=== PATIENT | male | born 1945 | race Caucasian/White ===

== ENCOUNTER 2018-06-10 07:20 | Observation (INO) ==
[2018-06-10] MEDS ORDERED: Morphine Inj 4 MG/ML Vial IV.PUSH ONE (07:26)
--- NOTE | 2018-06-10 07:32 | ED ---
HPI General Chief Complaint: Arrhythmia / Palpitations Stated Complaint: Cardiac Time Seen by Provider: 06/10/18 07:26 History of Present Illness HPI narrative: Patient is a 73-year-old male with a history of hypertension and hypercholesterolemia and history of CO in 1994 status post cath and defibrillator insertion. He presents to the ER complaining of chest pain and shortness of breath. He states the chest pain started yesterday and increased in severity today, sternal area radiating to left jaw, 2 out of 10, intermittent , 5 minutes in duration, worse with exertion, alleviated with rest. He was given 325 mg of aspirin and 2 doses of nitroglycerin by EMS prior to ER arrival which decrease the chest pain to 2 out of 10. He denies fever, chills, nausea, vomiting, lower extremity edema, reports shortness of breath with the chest pain and cough and recently traveled to [place] 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 Patient stopped smoking 6 years ago. Related Data Home Medications Medication Instructions Recorded Confirmed losartan 50 mg PO DAILY 06/10/18 06/10/18 metoprolol succinate 25 mg PO DAILY 06/10/18 06/10/18 simvastatin 40 mg PO QPM 06/10/18 06/10/18 temazepam 30 mg PO DAILY 06/10/18 06/10/18 Allergies Allergy/AdvReac Type Severity Reaction Status Date / Time No Known Allergies Allergy Verified 06/10/18 07:27 Review of Systems ROS: all other systems reviewed are [facility] Social History Social History Second Hand Smoke Exposure: No Smoking Status: Former smoker How Often Do You Have a Drink Containing Alcohol: Monthly or less Recent Travel in [facility] within the Last 8 Weeks: No Recent Out of Country Travel within the Last 8 Weeks: No Exam Narrative Exam Narrative: GENERAL: No acute distress. SKIN: Focused skin assessment warm/dry. HEAD: Atraumatic. Normocephalic. EYES: Pupils equal and round. No scleral icterus. No injection or drainage. ENT: No nasal bleeding or discharge. Mucous membranes pink and moist. NECK: Trachea midline. No JVD. CARDIOVASCULAR: Regular rate and rhythm. No murmur appreciated. + defibrillator L chest wall RESPIRATORY: No accessory muscle use. Wheezing bilaterally. GASTROINTESTINAL: Abdomen soft, non-tender, nondistended. Hepatic and splenic margins not palpable. MUSCULOSKELETAL: No obvious deformities. No clubbing. No cyanosis. No edema. NEUROLOGICAL: Awake and alert. No obvious cranial nerve deficits. Motor grossly within normal limits. Normal speech. PSYCHIATRIC: Appropriate mood and affect; insight and judgment normal. Course Initial Documented Vital Signs Temperature 98 F 06/10/18 07:30 Pulse Rate 91 H 06/10/18 07:30 Respiratory Rate 18 06/10/18 07:30 Blood Pressure 135/86 06/10/18 07:30 Last Documented Vital Signs Temperature 98 F 06/10/18 07:34 Pulse Rate 85 06/10/18 09:48 Respiratory Rate 15 06/10/18 09:48 Blood Pressure 110/64 06/10/18 09:48 Pulse Oximetry 96 06/10/18 09:48 Medical Decision Making MDM Narrative Medical decision making narrative: Patient with known cardiac disease presents to the emergency department complaining of chest pain or shortness of breath. Patient placed on personnel monitor, continuous pulse ox, and IV access obtained. As he was given aspirin by EMS and 2 doses of nitroglycerin prior to ER arrival which improved his pain, he was written for another dose of sublingual nitroglycerin 0.4 mg and 2 mg IV morphine in ER. Portable chest x-ray, EKG, and labs ordered. Patient written for duoneb x 1 and 125mg IV methylprednisolone for wheezing. 0758: Patient reports feeling much better after the breathing treatment, chest pain/tightness decreased. Of note, patient given 500cc IV NS by EMS and CXR shows: CONCLUSION: Minimal increased interstitial markings bilaterally consistent with possible mild pulmonary vascular congestion. 0907: BNP 360. Dr Arroyo, patient's leather belt shaper called. Left message with office staff as he is in a procedure at [facility]. 0939: Spoke to Dr Arroyo, advised to admit. Discussed with Dr Pollock, hospitalist. Will give 20mg IV lasix and admit to obs. CTA chest-> CONCLUSION:1. No pulmonary embolus identified.2. COPD changes.3. Bibasilar atelectasis and minimal effusionswithin the lung bases.4. Mild cardiomegaly.5. Mild atherosclerotic plaquing in the coronary arteries. Medical Screen Exam Complete: Yes Emergency Medical Condition: Yes Lab Data Result diagrams: 06/10/18 07:25 06/10/18 07:25 Lab Results 11/06/10/18 06/10/18 Range/Units 07:25 07:25 07:25 WBC 6.1 (4.0-11.0) th/mm3 RBC 4.54 (4.50-5.90) mil/mm3 Hgb 14.4 (13.0-17.0) gm/dL Hct 41.4 (39.0-51.0) % MCV 91.2 (80.0-100.0) fL MCH 31.7 (27.0-34.0) pg MCHC 34.8 (32.0-36.0) % RDW 13.5 (11.6-17.2) % Plt Count 157 (150-450) th/mm3 MPV 8.8 (7.0-11.0) fL Neut % (Auto) 60.4 (16.0-70.0) % Lymph % (Auto) 28.6 (9.0-44.0) % Gaines % (Auto) 8.1 H (0.0-8.0) % Eos % (Auto) 2.2 (0.0-4.0) % Baso % (Auto) 0.7 (0.0-2.0) % Neut # (Auto) 3.7 (1.8-7.7) th/mm3 Lymph # (Auto) 1.7 (1.0-4.8) th/mm3 Gaines # (Auto) 0.5 (0.0-0.9) th/mm3 Eos # (Auto) 0.1 (0.0-0.4) th/mm3 Baso # (Auto) 0.0 (0.0-0.2) th/mm3 WBC Differential . Differential Comment Auto diff final PT (9.8-11.6) sec INR Ratio APTT (23.4-31.7) sec D-Dimer Quant (PE/DVT) 0.87 H (0.00-0.50) mg/L FEU Sodium (136-145) meq/L Potassium (3.5-5.1) meq/L Chloride (98-107) meq/L Carbon Dioxide (21.0-32.0) meq/L Anion Gap (5-15) meq/L BUN (7-18) mg/dL Creatinine (0.60-1.30) mg/dL Estimated GFR (>89) mL/min Random Glucose (74-106) mg/dL Calcium (8.5-10.1) mg/dL Magnesium (1.5-2.5) mg/dL Total Bilirubin (0.2-1.0) mg/dL AST (15-37) U/L ALT (12-78) U/L Alkaline Phosphatase (45-117) U/L Troponin I (0.02-0.05) ng/mL B-Natriuretic Peptide 360 H (0-100) pg/mL Total Protein (6.4-8.2) g/dL Albumin (3.4-5.0) g/dL 06/10/18 06/10/18 Range/Units 07:25 07:25 WBC (4.0-11.0) th/mm3 RBC (4.50-5.90) mil/mm3 Hgb (13.0-17.0) gm/dL Hct (39.0-51.0) % MCV (80.0-100.0) fL MCH (27.0-34.0) pg MCHC (32.0-36.0) % RDW (11.6-17.2) % Plt Count (150-450) th/mm3 MPV (7.0-11.0) fL Neut % (Auto) (16.0-70.0) % Lymph % (Auto) (9.0-44.0) % Gaines % (Auto) (0.0-8.0) % Eos % (Auto) (0.0-4.0) % Baso % (Auto) (0.0-2.0) % Neut # (Auto) (1.8-7.7) th/mm3 Lymph # (Auto) (1.0-4.8) th/mm3 Gaines # (Auto) (0.0-0.9) th/mm3 Eos # (Auto) (0.0-0.4) th/mm3 Baso # (Auto) (0.0-0.2) th/mm3 WBC Differential Differential Comment PT 10.0 (9.8-11.6) sec INR 1.0 Ratio APTT 28.9 (23.4-31.7) sec D-Dimer Quant (PE/DVT) (0.00-0.50) mg/L FEU Sodium 144 (136-145) meq/L Potassium 3.8 (3.5-5.1) meq/L Chloride 112 H (98-107) meq/L Carbon Dioxide 22.4 (21.0-32.0) meq/L Anion Gap 10 (5-15) meq/L BUN 16 (7-18) mg/dL Creatinine 1.06 (0.60-1.30) mg/dL Estimated GFR 69 L (>89) mL/min Random Glucose 127 H (74-106) mg/dL Calcium 8.3 L (8.5-10.1) mg/dL Magnesium 2.0 (1.5-2.5) mg/dL Total Bilirubin 0.5 (0.2-1.0) mg/dL AST 20 (15-37) U/L ALT 25 (12-78) U/L Alkaline Phosphatase 91 (45-117) U/L Troponin I Less than 0.02 L (0.02-0.05) ng/mL B-Natriuretic Peptide (0-100) pg/mL Total Protein 7.3 (6.4-8.2) g/dL Albumin 3.5 (3.4-5.0) g/dL Imaging Data Radiologist's impression: Chest X-Ray 06/10/18 07:27 CONCLUSION: Minimal increased interstitial markings bilaterally consistent with possible mild pulmonary vascular congestion. Clinical correlation is recommended. Chest CTA 06/10/18 08:18 CONCLUSION: 1. No pulmonary embolus identified. 2. COPD changes. 3. Bibasilar atelectasis and minimal effusions within the lung bases. 4. Mild cardiomegaly. 5. Mild atherosclerotic plaquing in the coronary arteries. ECG Data Attestation: I personally reviewed and interpreted this ECG as follows: Discharge Plan Discharge Disposition Patient Disposition: 30 Still Patient Discharge Condition Condition: Stable Discharge Details Diagnosis: Chest pain, CHF (congestive heart failure) Physicians Team ED Provider: Mary Krishnamurthy Primary Care Provider: Chuck Magana Attending Provider: Lesly Pollock Other Providers: [facility],Insurance Discharge Interventions Interventions: Vital Signs Last Done: 06/10/18 09:48 Status ED Status: Admitted Observation Patient
[2018-06-10] MEDS ORDERED: MethylPREDNISolone Sod Succinate Inj 125 MG/2 ML Vial IV.PUSH ONE (07:50)
[2018-06-10 07:53] LABS: Baso % (Auto) 0.7 % (0.0-2.0); Eos # (Auto) 0.1 th/mm3 (0.0-0.4); Eos % (Auto) 2.2 % (0.0-4.0); Hematocrit 41.4 % (39.0-51.0); Hemoglobin 14.4 gm/dL (13.0-17.0); Lymph # (Auto) 1.7 th/mm3 (1.0-4.8); Lymph % (Auto) 28.6 % (9.0-44.0); Mean Corpuscular HGB Conc 34.8 % (32.0-36.0); Mean Corpuscular Hemoglobin 31.7 pg (27.0-34.0); Mean Corpuscular Volume 91.2 fL (80.0-100.0); Mean Platelet Volume 8.8 fL (7.0-11.0); Mono # (Auto) 0.5 th/mm3 (0.0-0.9); Mono % (Auto) 8.1 % (0.0-8.0); Neut # (Auto) 3.7 th/mm3 (1.8-7.7); Neut % (Auto) 60.4 % (16.0-70.0); Platelet Count 157 th/mm3 (150-450); Red Blood Count 4.54 mil/mm3 (4.50-5.90); Red Cell Distribution Width 13.5 % (11.6-17.2); White Blood Count 6.1 th/mm3 (4.0-11.0)
--- NOTE | 2018-06-10 07:53 | XR ---
EXAM DATE: 06/10/2018 7:43 AM EST AGE/SEX: 73 years / Male INDICATIONS: Shortness of breath and chest pain. CLINICAL DATA: This is the patient's initial encounter. Patient reports that signs and symptoms have been present for 1 day and indicates a pain score of 8/10. MEDICAL/SURGICAL HISTORY: . Cardiac. Pacemaker. COMPARISON: No prior exams available for comparison. FINDINGS: The heart is top normal size. Left subclavian pacemaker has its tip in the right ventricle. There is no pneumothorax. Minimal increased interstitial markings are noted consistent with possible mild katja estion. Clinical correlation is recommended. CONCLUSION: Minimal increased interstitial markings bilaterally consistent with possible mild pulmonary vascular congestion. Clinical correlation is recommended. Electronically signed by: Efren Barajas MD 06/10/2018 7:52 AM EST
[2018-06-10 08:07] LABS: Activated Partial Thrombo Time 28.9 sec (23.4-31.7)
[2018-06-10 08:28] LABS: Alanine Aminotransferase 25 U/L (12-78); Albumin 3.5 g/dL (3.4-5.0); Anion Gap 10 meq/L (5-15); Aspartate Aminotransferase 20 U/L (15-37); Blood Urea Nitrogen 16 mg/dL (7-18); Calcium 8.3 mg/dL (8.5-10.1); Carbon Dioxide 22.4 meq/L (21.0-32.0); Chloride 112 meq/L (98-107); Glomerular Filtration Rate 69 mL/min (>89); Glucose,Random 127 mg/dL (74-106); Potassium 3.8 meq/L (3.5-5.1); Sodium 144 meq/L (136-145)
[2018-06-10 08:32] LABS: Alkaline Phosphatase 91 U/L (45-117); Total Protein 7.3 g/dL (6.4-8.2)
--- NOTE | 2018-06-10 10:10 | CT ---
EXAM DATE: 06/10/2018 9:59 AM EST AGE/SEX: 73 years / Male INDICATIONS: Midsternal chest pain and shortness of breath. CLINICAL DATA: This is the patient's initial encounter. Patient reports that signs and symptoms have been present for 1 day and indicates a pain score of 4/10. MEDICAL/SURGICAL HISTORY: Cardiovascular disease. Cardiac cath. Defibrillator. RADIATION DOSE: 14.42 CTDI (mGy) COMPARISON: No prior exams available for comparison. TECHNIQUE: Volumetric scanning was performed using a multi-row detector CT scanner during bolus infu gissell of 72 ml Omnipaque 350 (iohexol) nonionic water-soluble contrast as a single exam dose. The kamryn a was post processed with a variety of visualization algorithms including full volume maximum intensi ty projection and sliding thin slab reformation. Using automated exposure control and adjustment of the mA and/or kV according to patient size, radiation dose was kept as low as reasonably achievable t o obtain optimal diagnostic quality images. DICOM format image data is available electronically for review and comparison. FINDINGS: The examination is of adequate diagnostic quality. No pulmonary embolus is identified. There is no significant hilar or mediastinal adenopathy evident. There is moderate atherosclerotic pl aquing in the coronary arteries. Imaging through the pulmonary parenchyma demonstrates moderate COPD changes. There is tubular bronchi ectasis in the lung bases and bibasilar atelectasis. There are minimal bibasilar effusions. There is a small amount of fluid within the major fissure on the right. No suspicious mass lesions are identif ied within the pulmonary parenchyma. There are degenerative changes within the thoracic spine. CONCLUSION: 1. No pulmonary embolus identified. 2. COPD changes. 3. Bibasilar atelectasis and minimal effusions within the lung bases. 4. Mild cardiomegaly. 5. Mild atherosclerotic plaquing in the coronary arteries. Electronically signed by: John Barnes MD 06/10/2018 10:09 AM EST
[2018-06-10 12:20] LABS: Creatine Kinase 88 U/L (39-308)
--- NOTE | 2018-06-10 12:54 | ECG ---
Date Performed: 06/10/2018 Time Performed: 07:24:29 PTAGE: 73 years EKG: Sinus rhythm WITH OCCASIONAL VENTRICULAR PREMATURE COMPLEXES MARKED LEFT AXIS DEVIATION MODERATE INTRAVENTRICULAR CONDUCTION DELAY NONSPECIFIC T-WAVE ABNORMALITY ABNORMAL ECG INTERPRETATION BASED ON A DEFAULT AGE O F 41 YEARS NO PREVIOUS TRACING DOCTOR: Genaro Granados Interpretating Date/Time 06/10/2018 12:54:39
[2018-06-10] MEDS: Enoxaparin Inj 40 MG/0.4 ML Syringe SQ SCH (13:00)
--- NOTE | 2018-06-10 13:42 | P.HPIM ---
History of Present Illness Service: [facility] Hospitalist Primary Care Physician: Chuck Magana MD Chief Complaint: Chest pain with shortness of breath History of Present Illness: 73-year-old white male with a previous history of hypertension, hyperlipidemia, systolic congestive heart failure with EF of 32%, history of WI in 95 status post catheterization, previous defibrillator presents to the emergency room with acute substernal chest pain which he describes as an elephant sitting on his chest radiating up to his neck which woke him up from sleep this morning which. This was associated with acute shortness of breath and sense of clamminess and therefore his contacted EMS to bring him to emergency room. Of note, patient had appointment with Dr. Chowdhury today at 5:00pm to follow-up with his chronic intermittent chest pressure he has had with physical exertion during the past 4 months. He had a cardiac catheterization done July of this year prior to the defibrillator placement and was told no further intervention needed to be done. He denies a history of lung problems and reported that he has intermittent shortness of breath with extensive physical exertion otherwise this is the first time he is experiencing chest pain and shortness of breath at rest and therefore came in for evaluation. He denies a history of lung problems. He does have a 30 pack tobacco history and quit 6 years ago. He denies any recent chills or fever nor any coughing associated with the symptoms. He denies symptoms orthopnea nor any edema. Patient reports chest pain now resolved after aspirin and Nitro given. Diagnosis (1) Acute on chronic systolic (congestive) heart failure: (2) Chest pain: Review of Systems Constitutional: Reports as per HPI and Denies headache(s) Eyes: Denies blurry vision, Denies change in vision and Denies eye pain Ears, Nose, Mouth, and Throat: Denies abnormal hearing, Denies headache(s), Denies mouth pain, Denies nasal congestion, Denies neck pain and Denies sore throat Cardiovascular: Reports as per HPI, Reports chest pain, Reports chest pain with activity, Reports diaphoresis, Denies pedal edema, Denies edema, Denies palpitations, Denies dyspnea, Reports dyspnea on exertion and Denies orthopnea Respiratory: Denies cough and Reports dyspnea Gastrointestinal: Denies abdominal pain, Denies constipation, Denies loose stools, Denies nausea and Denies vomiting Musculoskeletal: Denies back pain, Denies myalgias, Denies arthralgias, Denies neck pain and Denies numbness Skin/Breast: Denies new lesions and Denies rash Neurologic: Denies abnormal hearing, Denies headache(s), Denies focal weakness, Denies memory loss and Denies numbness Psychiatric: Denies anxiety, Denies depression and Denies memory loss Endocrine: Denies cold intolerance, Denies heat intolerance and Denies palpitations Hematologic/Lymphatic: Denies easy bleeding and Denies easy bruising PMFSH Medical History Medical History Diverticulosis (Chronic) Hyperlipidemia (Chronic) Hypertension (Chronic) Myocardial infarction (Chronic) Systolic congestive heart failure (Chronic) Surgical History Surgical History Cardiac defibrillator in place (Chronic) Family History Family History Father Heart disease Mother Heart disease Social History Social History Second Hand Smoke Exposure: No Smoking Status: Former smoker How Often Do You Have a Drink Containing Alcohol: Monthly or less Recent Travel in [facility] within the Last 8 Weeks: No Recent Out of Country Travel within the Last 8 Weeks: No Immunization History Tetanus Immunization: Unsure Medications and Allergies Allergies Allergy/AdvReac Type Severity Reaction Status Date / Time No Known Allergies Allergy Verified 06/10/18 07:27 Home Medications Medication Instructions Recorded Confirmed Type losartan 50 mg PO DAILY 06/10/18 06/10/18 History metoprolol succinate 25 mg PO DAILY 06/10/18 06/10/18 History simvastatin 40 mg PO QPM 06/10/18 06/10/18 History temazepam 30 mg PO HS 06/10/18 06/10/18 History Active Medications: Active Medications Aspirin (Aspirin Chew) 81 mg PO DAILY DINO Enoxaparin Sodium (Lovenox Inj) 40 mg SQ Q24H DINO Furosemide (Lasix Inj) 20 mg IV.PUSH BID@0900,1800 [facility] Losartan Potassium (Cozaar) 50 mg PO DAILY DINO Metoprolol Succinate (Toprol Xl) 25 mg PO DAILY DINO Potassium Chloride (K-Dur) 20 meq PO BID DINO Pravastatin Sodium (Pravachol) 80 mg PO DAILY@1800 DINO Sodium Chloride (Ns Flush) 2 ml IV.FLUSH UNSCH PRN PRN Reason: FLUSH AFTER USING IV ACCESS Last Admin: 06/10/18 08:00 Dose: 2 ml Sodium Chloride (Ns Flush) 2 ml IV.FLUSH BID DINO Sodium Chloride (Ns Flush) 2 ml IV.FLUSH UNSCH PRN PRN Reason: FLUSH AFTER USING IV ACCESS Physical Exam Vital signs: Last Vital Signs Temp 98 F 06/10/18 07:34 Pulse 85 06/10/18 09:48 Resp 15 06/10/18 09:48 BP 110/64 06/10/18 09:48 Pulse Ox 96 06/10/18 09:48 Intake & Output 06/08/18 06/09/18 06/10/18 06/11/18 06:59 06:59 06:59 06:59 Weight 60.328 kg Narrative: GENERAL: Well-nourished well-developed male in no acute distress SKIN: Warm and dry. HEAD: Atraumatic. Normocephalic. EYES: Pupils equal and round. No scleral icterus. No injection or drainage. ENT: No nasal bleeding or discharge. Mucous membranes pink and moist. NECK: Trachea midline. Positive JVD CARDIOVASCULAR: Regular rate and rhythm. RESPIRATORY: Few right basilar crackles GASTROINTESTINAL: Abdomen soft, non-tender, nondistended. Hepatic and splenic margins not palpable. Normoactive bowel sounds MUSCULOSKELETAL: Extremities without clubbing, cyanosis, or edema. No obvious deformities. NEUROLOGICAL: Awake and alert to person place time. No obvious cranial nerve deficits. Motor grossly within normal limits. Five out of 5 muscle strength in the arms and legs. Normal speech. PSYCHIATRIC: Appropriate mood and affect; insight and judgment normal. Results Labs CBC & Chem 7: 06/10/18 07:25 06/10/18 07:25 Imaging Impressions Chest X-Ray 06/10/18 07:27 CONCLUSION: Minimal increased interstitial markings bilaterally consistent with possible mild pulmonary vascular congestion. Clinical correlation is recommended. Chest CTA 06/10/18 08:18 CONCLUSION: 1. No pulmonary embolus identified. 2. COPD changes. 3. Bibasilar atelectasis and minimal effusions within the lung bases. 4. Mild cardiomegaly. 5. Mild atherosclerotic plaquing in the coronary arteries. ECG Attestation: I personally reviewed and interpreted this ECG as follows: Prior ECG tracings: not available for review Interpretation: Normal sinus rhythm heart rate 93 with PVCs Caprini VTE Risk Assessment Caprini VTE Risk Assessment: Moderate/High Risk (score >= 2) Caprini Risk Assessment Model: Point Value = 1 Point Value = 2 Point Value = 3 Point Value = 5 Age 41-60 Minor surgery BMI > 25 kg/m2 Swollen legs Varicose veins or History of unexplained or recurrent spontaneous Oral contraceptives or hormone replacement Sepsis (< 1 month) Serious lung disease, including pneumonia (< 1 month) Abnormal pulmonary function Acute myocardial infarction Congestive heart failure (< 1 month) History of inflammatory bowel disease Medical patient at bed rest Age 61-74 Arthroscopic surgery Major open surgery (> 45 min) Laparoscopic surgery (> 45 min) Malignancy Confined to bed (> 72 hours) Immobilizing plaster cast Central venous access Age >= 75 History of VTE Family history of VTE Factor V Leiden Prothrombin 12001T Lupus anticoagulant Anticardiolipin antibodies Elevated serum homocysteine Heparin-induced thrombocytopenia Other congenital or acquired thrombophilia Stroke (< 1 month) Elective arthroplasty Hip, pelvis, or leg fracture Acute spinal cord injury (< 1 month) Prophylaxis Regimen: Total Risk Factor Score Risk Level Prophylaxis Regimen 0-1 Low Early ambulation 2 Moderate Order ONE of the following: *Sequential Compression Device (SCD) *Heparin 5000 units SQ BID 3-4 Higher Order ONE of the following medications: *Heparin 5000 units SQ TID *Enoxaparin/Lovenox 40 mg SQ daily (WT < 150 kg, CrCl > 30 mL/min) *Enoxaparin/Lovenox 30 mg SQ daily (WT < 150 kg, CrCl > 10-29 mL/min) *Enoxaparin/Lovenox 30 mg SQ BID (WT < 150 kg, CrCl > 30 mL/min) AND/OR *Sequential Compression Device (SCD) 5 or more Highest Order ONE of the following medications: *Heparin 5000 units SQ TID (Preferred with Epidurals) *Enoxaparin/Lovenox 40 mg SQ daily (WT < 150 kg, CrCl > 30 mL/min) *Enoxaparin/Lovenox 30 mg SQ daily (WT < 150 kg, CrCl > 10-29 mL/min) *Enoxaparin/Lovenox 30 mg SQ BID (WT < 150 kg, CrCl > 30 mL/min) AND *Sequential Compression Device (SCD) Assessment and Plan (1) Acute on chronic systolic (congestive) heart failure: Code(s): I50.23 - Acute on chronic systolic (congestive) heart failure Status: Acute (2) Chest pain: Code(s): R07.9 - Chest pain, unspecified Status: Acute Plan 73-year-old male with a previous history of systolic congestive heart failure status post defibrillator, hypertension, hyperlipidemia presents with chest pain and shortness of breath at rest Acute on chronic systolic congestive heart failure exacerbation -placed on observation, IV Lasix, fluid restriction, monitor I's and O's, obtain 2D echo, states that previous echo done in July of this year showed a EF of 32% with Dr. Chowdhury. BNP 360 Chest pain-serial cardiac enzymes with EKG, initiate aspirin, reports a cardiac catheterization done in July of this year. His cardiology Dr. Chowdhury has been consulted for further evaluation. No pulmonary embolus seen on CTA. Discussed COPD changes on CTA imaging report with patient and and recommended patient have an outpatient workup with office spirometry and follow with primary care physician. He does have a 30-year pack history of tobacco use and has quit 6 years ago. Hypertension, chronic essentialresume home losartan Hyperlipidemiaresume simvastatin DVT prophylaxisLovenox. _ (1) Chest pain Qualifiers: Chest pain type: unspecified Ischemic chest pain type: Qualified Code(s): R07.9 - Chest pain, unspecified
--- NOTE | 2018-06-10 17:28 | ECHRPT ---
Indication: HEART FAILURE CONCLUSIONS Severely dilated left ventricle. Wall thickness is measured at the upper limits of normal. The left ventricular systolic function is severely reduced with an estimated ejection fraction less than 20%. [id number] mitral valve regurgitation. Trace aortic valve regurgitation. There is trace tricuspid valve regurgitation There is a pacemaker/defibrillator wire seen in the right atrium and the right ventricular. BP: / HR: Rhythm: Sinus MEASUREMENTS (Male / Female) Normal Values Technical Quality:Fair 2D ECHO LVOT Diameter 1.9 cm Aortic Root Diameter 2.9 cm DOPPLER AV Peak Velocity 85.5 cm/s AV Peak Gradient 2.9 mmHg AV Mean Gradient 2.0 mmHg AV Velocity Time Integral 15.3 cm LVOT Peak Velocity 57.9 cm/s LVOT Peak Gradient 1.3 mmHg LVOT Velocity Time Integral 10.8 cm AV Area Cont Eq vti 2.0 cm AV Area Cont Eq pk 1.9 cm Mitral E Point Velocity 83.4 cm/s Mitral A Point Velocity 72.1 cm/s Mitral E to A Ratio 1.2 LV E' Lateral Velocity 8.2 cm/s Mitral E to LV E' Lateral Ratio 10.2 LV E' Septal Velocity 3.1 cm/s Mitral E to LV E' Septal Ratio 26.7 TR Peak Velocity 354.0 cm/s TR Peak Gradient 50.0 mmHg Right Atrial Pressure 10.0 mmHg Pulmonary Artery Systolic Pressu 60.1 mmHg Right Ventricular Systolic Press 60.1 mmHg PV Peak Velocity 29.3 cm/s PV Peak Gradient 0.3 mmHg FINDINGS LEFT VENTRICLE Severely dilated left ventricle. Wall thickness is measured at the upper limits of normal. The left ventricular systolic function is severely reduced with an estimated ejection fraction less than 20%. RIGHT VENTRICLE Normal right ventricular size and systolic function. A pacemaker wire is noted. LEFT ATRIUM The left atrial size is normal. RIGHT ATRIUM The right atrial size is normal. ATRIAL SEPTUM No atrial level shunt is demonstrated by color flow Doppler interrogation. AORTA The aortic root and proximal ascending aorta are not well visualized. MITRAL VALVE [id number] mitral valve regurgitation. AORTIC VALVE Trace aortic valve regurgitation. TRICUSPID VALVE There is trace tricuspid valve regurgitation PULMONARY VALVE No pulmonary valve regurgitation or stenosis. VESSELS The inferior vena cava was not well visualized. PERICARDIUM No pericardial effusion. Genaro Granados MD, FACC (Electronically Signed) Final Date:10 June 2018 17:27
[2018-06-10] MEDS ORDERED: Temazepam 15 MG Capsule PO PRN (21:45)
[2018-06-11 07:55] VITALS: BP 118/67; PULSE 87; RESP 16; TEMP 98; O2SAT 95
[2018-06-11 07:55] LABS: Calcium 9.8 mg/dL (8.5-10.1); Carbon Dioxide 21.9 meq/L (21.0-32.0); Potassium 4.4 meq/L (3.5-5.1)
--- NOTE | 2018-06-11 09:37 | MB ---
cc: Lisa Arroyo MD DATE: 06/11/2018 REASON FOR CONSULTATION: Chest pain and CHF exacerbation. HISTORY OF PRESENT ILLNESS: This is a 73-year-old male who was well-known to me, had a past medical history of severe dilated cardiomyopathy with an ejection fraction of 32%, status post AICD placement, hypertension, hyperlipidemia, and remote history of myocardial infarction. The patient presented to [facility] emergency room yesterday with a complaint of chest pressure radiating to the neck and jaw. He also experienced increasing shortness of breath with exertion. The initial workup included BNP which was elevated at 360. Multiple cardiac enzymes came back with a troponin of 0.02. CT scan of the chest was negative for pulmonary embolus. EKG was also obtained and showed no ST changes. The patient is feeling better this morning. He denies PND, orthopnea, lower extremity edema, or recent weight gain. He also denies presyncope and syncope. ALLERGIES: UNKNOWN. SOCIAL HISTORY: Nonsmoker, nondrinker. FAMILY HISTORY: Noncontributory. REVIEW OF SYSTEMS: HEENT: No complaints of lightheadedness or dizziness. CARDIOVASCULAR: History of severe dilated cardiomyopathy status post AICD. PULMONARY: No complaints of asthma or COPD. GASTROINTESTINAL: No GERD or GI bleed. GENITOURINARY: No history of renal failure. The remainder of his review of systems was within normal limits. PHYSICAL EXAMINATION: VITAL SIGNS: Show blood pressure of 120/70 with a heart rate of 70, respiratory rate of 12. The patient is afebrile. NECK: Supple with no jugular venous distention. CHEST: Clear to auscultation and percussion. HEART: S1 normal intensity, S2 single, regular rate and rhythm. No S3 appreciated. ABDOMEN: Benign. EXTREMITIES: No edema, clubbing, or cyanosis. IMPRESSION: 1. Congestive heart failure exacerbation secondary to [id number] severe dilated cardiomyopathy. 2. Chest pain, possibly bronchospasm versus coronary spasm. The patient had a left heart catheterization earlier this year, which showed normal coronary arteries. 3. Status post automatic implantable cardioverter-defibrillator. 4. Severe dilated cardiomyopathy with ejection fraction of 32%. 5. Hypertension. 6. Hyperlipidemia. RECOMMENDATION: I recommend starting the patient on long-acting nitroglycerin like isosorbide mononitrate 30 mg at bedtime for symptomatic relief. There is no suspicion of acute coronary syndrome. At this point, he is cleared from the cardiovascular standpoint to be discharged home. I will follow up in my office next week. MD LILIYA English/fracisco , 08:32 AM , 08:41 AM
--- NOTE | 2018-06-11 09:56 | P.DS ---
Date of admission: 06/10/18 09:40 Primary care physician: Chuck Magana MD Brief History from admission: 73-year-old white male with a previous history of hypertension, hyperlipidemia, systolic congestive heart failure with EF of 32%, history of UT in 95 status post catheterization, previous defibrillator presents to the emergency room with acute substernal chest pain which he describes as an elephant sitting on his chest radiating up to his neck which woke him up from sleep this morning which. This was associated with acute shortness of breath and sense of clamminess and therefore his contacted EMS to bring him to emergency room. Of note, patient had appointment with Dr. Chowdhury today at 5:00pm to follow- up with his chronic intermittent chest pressure he has had with physical exertion during the past 4 months. He had a cardiac catheterization done July of this year prior to the defibrillator placement and was told no further intervention needed to be done. He denies a history of lung problems and reported that he has intermittent shortness of breath with extensive physical exertion otherwise this is the first time he is experiencing chest pain and shortness of breath at rest and therefore came in for evaluation. He denies a history of lung problems. He does have a 30 pack tobacco history and quit 6 years ago. He denies any recent chills or fever nor any coughing associated with the symptoms. He denies symptoms orthopnea nor any edema. Patient reports chest pain now resolved after aspirin and Nitro given. DS: Medications - Discharge Medications Prescriptions: isosorbide mononitrate 30 mg PO DAILY@0700 #30 tab DS: Summary Hospital Course: Mr. Bradford is a 73-year-old male. He is admitted secondary to chest pain/angina. Symptoms may have been related to coronary spasm or known coronary artery disease. She did have a mild CHF exacerbation which has resolved. Baseline EF is approximately 32%. This morning patient feels back to baseline. Cardiology has evaluated this patient and recommended long-acting nitrates. Patient is stable and clear for discharge from cardiology standpoint and medically stable and cleared from medical team as well. Discharge home today. - Time Spent with Patient Total time spent providing and/or coordinating discharge services: Less than 30 minutes - Quality: VTE Deep Vein Thrombosis/Pulmonary Embolism Present on Admission: No Exam Vital signs: Vital Signs 06/10/18 13:36 06/10/18 15:00 06/10/18 17:19 Temperature Pulse Rate 93 H 102 H 98 H Respiratory Rate 15 16 16 Blood Pressure 119/77 156/83 H 147/79 H Pulse Oximetry 97 99 06/10/18 19:18 06/10/18 22:44 06/10/18 23:16 Temperature 97.6 F 98.2 F Pulse Rate 93 H 103 H 98 H Respiratory Rate 16 16 Blood Pressure 127/77 143/82 H Pulse Oximetry 97 97 97 06/11/18 03:23 06/11/18 07:53 Temperature 97.9 F 98.0 F Pulse Rate 96 H 87 Respiratory Rate 12 16 Blood Pressure 111/68 118/67 Pulse Oximetry 93 L 95 Intake & Output 06/10/18 06/11/18 06/11/18 18:59 06:59 18:59 Intake Total 240 / 240 240 / 240 Output Total 2250 / 2250 500 / 500 Balance -2009 / -2009 - / -260 Weight 60.425 kg 58.66 kg Intake: Oral 240 / 240 240 / 240 Output: Urine 2250 / 2250 500 / 500 Other: # Voids 1 Date of Last Bowel Movement 06/08/18 06/10/18 Weight On Admission 60.425 kg Results Procedures completed during hospitalization: none Labs on day of discharge: Labs from last 24 hours 06/11/18 06/10/18 06/10/18 05:51 22:04 13:17 Sodium 138 Potassium 4.4 Chloride 107 Carbon Dioxide 21.9 Anion Gap 9 BUN 23 H Creatinine 1.04 Estimated GFR 70 L Random Glucose 120 H Calcium 9.8 D Total Creatine Kinase Troponin I Less than 0.02 L Less than 0.02 L 06/10/18 11:21 Sodium Potassium Chloride Carbon Dioxide Anion Gap BUN Creatinine Estimated GFR Random Glucose Calcium Total Creatine Kinase 88 Troponin I Less than 0.02 L - Impressions ITS Impressions Chest X-Ray 06/10/18 07:27 CONCLUSION: Minimal increased interstitial markings bilaterally consistent with possible mild pulmonary vascular congestion. Clinical correlation is recommended. Chest CTA 06/10/18 08:18 CONCLUSION: 1. No pulmonary embolus identified. 2. COPD changes. 3. Bibasilar atelectasis and minimal effusions within the lung bases. 4. Mild cardiomegaly. 5. Mild atherosclerotic plaquing in the coronary arteries. Discharge Plan - Discharge Disposition Patient Disposition: 01 Discharge Home - Discharge Condition Condition: Stable - Discharge Order Discharge Orders: Discharge Order (Routine); Ordered 06/11/18 Ordered By: John Noel - Discharge Details Anticipated Discharge Date: 06/11/18 - Physicians Team Primary Care Provider: Chuck Magana Attending Provider: John Noel Other Providers: [facility],Insurance
[2018-06-11] MEDS: Enoxaparin Inj 40 MG/0.4 ML Syringe SQ SCH (10:18)
--- NOTE | 2018-06-11 12:10 | ECG ---
Date Performed: 06/10/2018 Time Performed: 20:55:47 PTAGE: 73 years EKG: Sinus rhythm WITH SHORT ND INTERVAL WITH OCCASIONAL ECTOPIC PREMATURE COMPLEXES POSSIBLE LEFT ATRIAL ENLARGEMENT MARKED LEFT AXIS DEVIATION LEFT BUNDLE BRANCH BLOCK ABNORMAL ECG Since the PREVIOUS TRACING , no significant change noted PREVIOUS TRACIN06/10/2018 07.24 DOCTOR: Fuad Rapp Interpretating Date/Time 06/11/2018 12:09:04
[2018-06-12] MEDS ORDERED: Isosorbide Mononitrate 30 MG ER 24HR Tablet (Imdur) PO SCH (07:00)
== END 2018-06-11 11:47 | disposition home or self-care (01) ==
LOC: NEDA 07:20 → NEPC 07:20 → NEDA 15:18 → NEPGCP 17:33
PROVIDERS: ADMIT Hospitalist; ATTEND Hospitalist
DX: I50.23 Acute on chronic systolic (congestive) heart failure; I34.0 Nonrheumatic mitral (valve) insufficiency; I11.0 Hypertensive heart disease with heart failure; I25.2 Old myocardial infarction; Z79.899 Other long term (current) drug therapy; R07.89 Other chest pain; Z87.891 Personal history of nicotine dependence; Z95.810 Presence of automatic (implantable) cardiac defibrillator; E78.5 Hyperlipidemia, unspecified; I42.0 Dilated cardiomyopathy; I25.119 Atherosclerotic heart disease of native coronary artery with unspecified angina pectoris

== ENCOUNTER 2018-08-31 23:03 | Observation (INO) ==
[2018-08-31] MEDS ORDERED: MethylPREDNISolone Sod Succinate Inj 125 MG/2 ML Vial IV.PUSH ONE (23:07)
--- NOTE | 2018-08-31 23:14 | ED ---
HPI General Stated Complaint: SOB/[place] Time Seen by Provider: 08/31/18 23:07 Source: patient Mode of arrival: ambulatory Limitations: no limitations History of Present Illness 73-year-old male recently diagnosed with COPD and past history of congestive heart failure presents for evaluation of shortness of breath and cough since yesterday. Patient denies any chest pain. He took albuterol inhaler with no improvement and called EMS. Patient was saturating 92% on room air when EMS arrived however they found him to be in moderate respiratory distress. He improved somewhat with nebulizer treatment. MD Complaint: Reports shortness of breath Onset (ago): day(s) (1) Severity: severe Consistency/Duration: progressively worsening Relieving factors: oxygen and bronchodilators Exacerbating factors: nothing Known history of: Reports COPD and congestive heart failure Associated symptoms: Reports cough; Denies chest pain, pain with inspiration, fever, sputum production, lower extremity pain, nausea/vomiting and abdominal pain Treatment prior to arrival: Reports oxygen and bronchodilator Related Data Home Medications Medication Instructions Recorded Confirmed losartan 50 mg PO DAILY 06/10/18 09/01/18 metoprolol succinate 25 mg PO DAILY 06/10/18 09/01/18 simvastatin 40 mg PO QPM 06/10/18 09/01/18 temazepam 30 mg PO HS 06/10/18 09/01/18 albuterol sulfate [ProAir HFA] 2 puff INHALATION Q4-6H PRN 09/01/18 09/01/18 fluticasone-vilanterol [Breo 1 inh INHALATION DAILY 09/01/18 09/01/18 Ellipta] Previous Rx's Medication Instructions Recorded isosorbide mononitrate 30 mg PO DAILY@0700 #30 tab 06/11/18 Allergies Allergy/AdvReac Type Severity Reaction Status Date / Time No Known Allergies Allergy Verified 09/01/18 01:02 Review of Systems ROS: all other systems reviewed are negative [facility] Medical History Medical History COPD (chronic obstructive pulmonary disease) (Acute) Diverticulosis (Chronic) Hyperlipidemia (Chronic) Hypertension (Chronic) Myocardial infarction (Chronic) Systolic congestive heart failure (Chronic) Surgical History Surgical History Cardiac defibrillator in place (Chronic) Family History Family History Father Heart disease Mother Heart disease Social History Social History Substance History: No History of Abuse Second Hand Smoke Exposure: No Smoking Status: Former smoker Tobacco Type: Cigarettes How Often Do You Have a Drink Containing Alcohol: 2 to 4 times a month Exam Narrative Exam Narrative: GENERAL: Awake, alert, mild tachypnea but no distress SKIN: Focused skin assessment warm/dry. HEAD: Atraumatic. Normocephalic. EYES: Pupils equal and round. No scleral icterus. No injection or drainage. ENT: No nasal bleeding or discharge. Mucous membranes pink and moist. NECK: Trachea midline. No JVD. CARDIOVASCULAR: Regular rate and rhythm. No murmur appreciated. RESPIRATORY: No accessory muscle use. Clear to auscultation. Breath sounds equal bilaterally. GASTROINTESTINAL: Abdomen soft, non-tender, nondistended. Hepatic and splenic margins not palpable. MUSCULOSKELETAL: No obvious deformities. No clubbing. No cyanosis. No edema. NEUROLOGICAL: Awake and alert. No obvious cranial nerve deficits. Motor grossly within normal limits. Normal speech. PSYCHIATRIC: Appropriate mood and affect; insight and judgment normal. Course Initial Documented Vital Signs Pulse Rate 112 H 08/31/18 23:12 Respiratory Rate 14 08/31/18 23:12 Pulse Oximetry 95 08/31/18 23:12 Last Documented Vital Signs Pulse Rate 112 H 08/31/18 23:12 Respiratory Rate 14 08/31/18 23:12 Pulse Oximetry 95 08/31/18 23:12 Medical Decision Making [facility] Narrative Medical decision making narrative: 73-year-old male presents for evaluation shortness of breath since yesterday which acutely worsened just prior to arrival. Most likely etiology is COPD exacerbation, however CHF exacerbation, ACS, pneumonia are also possible. Patient given Solu-Medrol and DuoNeb with improvement of symptoms. Will check chest x-ray, labs, EKG Chest x-ray without infiltrate, just small amount of atelectasis. Laboratory work shows no elevated white blood cell count or anemia. Chemistry is unremarkable. Troponin negative x1. BNP is elevated at 660. Will give patient Lasix for possible CHF exacerbation, however I think his symptoms are predominantly COPD. Patient saturating 90-92% on room air. Attempted to ambulate patient, however he became dyspneic and dizzy. Will admit to medicine for COPD exacerbation. Medical Screen Exam Complete: Yes Emergency Medical Condition: Yes Lab Data Lab results reviewed: Yes I reviewed the patient's lab results. Result diagrams: 08/31/18 23:10 08/31/18 23:10 Lab Results 08/31/18 08/31/18 08/31/18 Range/Units 23:10 23:10 23:10 CBC w Diff Auto diff final WBC 7.8 (4.0-11.0) th/mm3 RBC 4.70 (4.50-5.90) mil/mm3 Hgb 14.2 (13.0-17.0) gm/dL Hct 42.5 (39.0-51.0) % MCV 90.6 (80.0-100.0) fL MCH 30.3 (27.0-34.0) pg MCHC 33.5 (32.0-36.0) % RDW 13.2 (11.6-17.2) % Plt Count 251 (150-450) th/mm3 MPV 8.2 (7.0-11.0) fL Neut % (Auto) 69.8 (16.0-70.0) % Lymph % (Auto) 22.1 (9.0-44.0) % [place] % (Auto) 5.7 (0.0-8.0) % Eos % (Auto) 1.8 (0.0-4.0) % Baso % (Auto) 0.6 (0.0-2.0) % Neut # (Auto) 5.6 (1.8-7.7) th/mm3 Lymph # (Auto) 1.7 (1.0-4.8) th/mm3 [place] # (Auto) 0.4 (0.0-0.9) th/mm3 Eos # (Auto) 0.1 (0.0-0.4) th/mm3 Baso # (Auto) 0.0 (0.0-0.2) th/mm3 WBC Differential . Differential Comment . Sodium 139 (136-145) meq/L Potassium 3.6 (3.5-5.1) meq/L Chloride 109 H (98-107) meq/L Carbon Dioxide 24.8 (21.0-32.0) meq/L Anion Gap 5 (5-15) meq/L BUN 14 (7-18) mg/dL Creatinine 1.00 (0.60-1.30) mg/dL Estimated GFR 73 L (>89) mL/min Random Glucose 102 (74-106) mg/dL Calcium 8.8 (8.5-10.1) mg/dL Total Bilirubin 0.7 (0.2-1.0) mg/dL AST 20 (15-37) U/L ALT 25 (12-78) U/L Alkaline Phosphatase 97 (45-117) U/L Troponin I Less than 0.02 L (0.02-0.05) ng/mL B-Natriuretic Peptide 660 H (0-100) pg/mL Total Protein 8.0 (6.4-8.2) g/dL Albumin 3.9 (3.4-5.0) g/dL Imaging Data Radiologist's impression: Chest X-Ray 08/31/18 23:07 CONCLUSION: 1. Hyperinflation with prominent interstitial markings probably representing some degree of COPD with fibrosis. 2. Left basilar atelectatic changes just above the hemidiaphragm. 3. Heart size is borderline prominent but well compensated ECG Data Attestation: I personally reviewed and interpreted this ECG as follows: Interpretation: Sinus tachycardia, rate of 102, left bundle branch block, no ST or T wave changes, no change from previous 06/10/2018 Discharge Plan Discharge Order Discharge Orders: ED Use Only Admit Order (Routine); Ordered 09/01/18 Ordered By: Gia Jacobs Physicians Team ED Provider: Gia Jacobs Primary Care Provider: Chuck Magana Rxs /Orders / Referrals /Forms Prescriptions: No Action losartan 50 mg Tablet 50 mg PO DAILY RF: 0 simvastatin 40 mg Tablet 40 mg PO QPM RF: 0 metoprolol succinate 25 mg Tablet Extended Release 24 Hr 25 mg PO DAILY RF: 0 temazepam 30 mg capsule 30 mg PO HS RF: 0 isosorbide mononitrate 30 mg Tablet Extended Release 24 Hr 30 mg PO DAILY@0700 Qty: 30 RF: 0 albuterol sulfate [ProAir HFA] 90 mcg/actuation Hfa Aerosol Inhaler 2 puff INHALATION Q4-6H PRN (Reason: Shortness Of Breath) RF: 0 fluticasone-vilanterol [Breo Ellipta] 100-25 mcg/dose Blister With Device 1 inh INHALATION DAILY RF: 0 Status ED Status: With Doctor
[2018-08-31 23:23] LABS: Baso % (Auto) 0.6 % (0.0-2.0); Eos # (Auto) 0.1 th/mm3 (0.0-0.4); Eos % (Auto) 1.8 % (0.0-4.0); Hematocrit 42.5 % (39.0-51.0); Hemoglobin 14.2 gm/dL (13.0-17.0); Lymph # (Auto) 1.7 th/mm3 (1.0-4.8); Lymph % (Auto) 22.1 % (9.0-44.0); Mean Corpuscular HGB Conc 33.5 % (32.0-36.0); Mean Corpuscular Hemoglobin 30.3 pg (27.0-34.0); Mean Corpuscular Volume 90.6 fL (80.0-100.0); Mean Platelet Volume 8.2 fL (7.0-11.0); Mono # (Auto) 0.4 th/mm3 (0.0-0.9); Mono % (Auto) 5.7 % (0.0-8.0); Neut # (Auto) 5.6 th/mm3 (1.8-7.7); Neut % (Auto) 69.8 % (16.0-70.0); Platelet Count 251 th/mm3 (150-450); Red Cell Distribution Width 13.2 % (11.6-17.2); White Blood Count 7.8 th/mm3 (4.0-11.0)
[2018-08-31 23:30] LABS: Chloride 109 meq/L (98-107); Potassium 3.6 meq/L (3.5-5.1); Sodium 139 meq/L (136-145)
[2018-08-31 23:33] LABS: Calcium 8.8 mg/dL (8.5-10.1)
[2018-08-31 23:34] LABS: Albumin 3.9 g/dL (3.4-5.0); Anion Gap 5 meq/L (5-15); Blood Urea Nitrogen 14 mg/dL (7-18); Carbon Dioxide 24.8 meq/L (21.0-32.0); Glucose,Random 102 mg/dL (74-106)
[2018-08-31 23:37] LABS: Alanine Aminotransferase 25 U/L (12-78); Aspartate Aminotransferase 20 U/L (15-37); Glomerular Filtration Rate 73 mL/min (>89)
[2018-08-31 23:40] LABS: Alkaline Phosphatase 97 U/L (45-117)
--- NOTE | 2018-08-31 23:54 | XR ---
EXAM DATE: 08/31/2018 11:30 PM EST AGE/SEX: 73 years / Male INDICATIONS: Shortness of breath. CLINICAL DATA: This is the patient's initial encounter. Patient reports that signs and symptoms have been present for 1 day and indicates a pain score of 0/10. MEDICAL/SURGICAL HISTORY: Hypertension. Myocardial infarction. Pacemaker. COMPARISON: [facility] [place], CHEST 1V SINGLE AP, 06/10/2018. . FINDINGS: A single AP view of the chest demonstrates the lungs to be symmetrically hyperinflated with some incr eased interstitial markings suggesting some degree of COPD with fibrosis. Stable biapical capping. Le ft basilar atelectatic changes just above the hemidiaphragm. Heart size is borderline prominent but w ell compensated. Left subclavian unipolar pacer is radiographically intact. Multiple old healed rib f ractures are seen posterior laterally in the right upper and mid chest. Degenerative spurring of the dorsal spine. CONCLUSION: 1. Hyperinflation with prominent interstitial markings probably representing some degree of COPD wit h fibrosis. 2. Left basilar atelectatic changes just above the hemidiaphragm. 3. Heart size is borderline prominent but well compensated Electronically signed by: Charly Hendricks MD Board Certified Radiologist 08/31/2018 11:52 PM EST
[2018-09-01] MEDS ORDERED: Bisacodyl 10 MG Supp RECTAL PRN (01:04)
[2018-09-01] MEDS ORDERED: Acetaminophen 325 MG Tablet PO PRN (01:04)
[2018-09-01] MEDS ORDERED: Heparin - SQ 10,000 UNITS/ML Vial SQ SCH (01:15)
[2018-09-01] MEDS ORDERED: MethylPREDNISolone Sod Succinate Inj 40 MG/ML Vial IV.PUSH SCH (06:00)
[2018-09-01] MEDS ORDERED: Senna/Docusate Sodium 8.6/50 MG Tablet PO SCH (09:00)
--- NOTE | 2018-09-01 12:02 | P.HPIM ---
History of Present Illness Service: 73-year-old man with a past medical history of hyperlipidemia, systolic congestive heart failure with reduced ejection fraction, hypertension and COPD presented to the ED for evaluation of worsening symptoms of shortness of breath without any associated chest pain or febrile episodes times 2 days duration. Patient states his symptoms initially started on Friday however mild but worsened on Friday. He denies any improvements despite taking his rescue inhalers. Denies any upper respiratory infections. He initially did not have any wheezing on exam on Friday however, the following day he was noted to be wheezing. Currently patient denies any wheezing. Patient states, he was prescribed Breo by his carrot tier, and had only taken 3-4 days worth of therapy. He reports improvements of respiratory symptoms this morning and would like to be discharged home, although he feels a little bit tired. by the bedside. Primary Care Physician: Chuck Magana MD Review of Systems Review of Systems: all other systems reviewed are negative COUNT INCLUDES [facility] Medical History Medical History COPD (chronic obstructive pulmonary disease) (Acute) Diverticulosis (Chronic) Hyperlipidemia (Chronic) Hypertension (Chronic) Myocardial infarction (Chronic) Systolic congestive heart failure (Chronic) Surgical History Surgical History Cardiac defibrillator in place (Chronic) Family History Family History Father Heart disease Mother Heart disease Social History Social History Substance History: No History of Abuse Second Hand Smoke Exposure: No Smoking Status: Former smoker Tobacco Type: Cigarettes How Often Do You Have a Drink Containing Alcohol: 2 to 4 times a month Recent Travel in [facility] within the Last 8 Weeks: No Recent Out of Country Travel within the Last 8 Weeks: No Immunization History Tetanus Immunization: <5 Years Hx Influenza Vaccine This Season: Yes Medications and Allergies Allergies Allergy/AdvReac Type Severity Reaction Status Date / Time No Known Allergies Allergy Verified 09/01/18 01:02 Home Medications Medication Instructions Recorded Confirmed Type losartan 50 mg PO DAILY 06/10/18 09/01/18 History metoprolol succinate 25 mg PO DAILY 06/10/18 09/01/18 History simvastatin 40 mg PO QPM 06/10/18 09/01/18 History temazepam 30 mg PO HS 06/10/18 09/01/18 History albuterol sulfate [ProAir HFA] 2 puff INHALATION Q4-6H PRN 09/01/18 09/01/18 History fluticasone-vilanterol [Breo 1 inh INHALATION DAILY 09/01/18 09/01/18 History Ellipta] Active Medications: Active Medications Acetaminophen (Tylenol) 650 mg PO Q4H PRN PRN Reason: Temp > 100.4 Al Hydroxide/Mg Hydroxide (Milk Of Magnesia Liq) 30 ml PO Q12H PRN PRN Reason: Mild Constipation Albuterol (Duoneb Neb (Prn)) 1 ampul NEB Q4HR NEB PRN PRN Reason: SOB/Wheezing Last Admin: 09/01/18 09:29 Dose: 1 ampul Bisacodyl (Dulcolax Supp) 10 mg RECTAL DAILY PRN PRN Reason: SEVERE CONSITIPATION Furosemide (Lasix Inj) 20 mg IV.PUSH BID@0900,1800 [facility] Last Admin: 09/01/18 08:58 Dose: 20 mg Heparin Sodium (Porcine) (Heparin Inj) 5,000 units SQ Q12H [facility] Last Admin: 09/01/18 02:53 Dose: 5,000 units Lactulose (Lactulose Liq) 30 ml PO DAILY PRN PRN Reason: SEVERE CONSITIPATION Methylprednisolone Sodium Succinate (Solumedrol Inj) 40 mg IV.PUSH Q8HR [facility] Last Admin: 09/01/18 05:46 Dose: 40 mg Ondansetron HCl (Zofran Inj) 4 mg IV.PUSH Q6H PRN PRN Reason: NAUSEA OR VOMITING Senna/Docusate Sodium (Fanny-Colace) 1 tab PO BID [facility] Last Admin: 09/01/18 09:08 Dose: Not Given Sennosides (Senokot) 17.2 mg PO Q12H PRN PRN Reason: Moderate Constipation Sodium Chloride (Ns Flush) 2 ml IV.FLUSH BID [facility] Last Admin: 09/01/18 09:04 Dose: 2 ml Sodium Chloride (Ns Flush) 2 ml IV.FLUSH PRN PRN PRN Reason: FLUSH AFTER USING IV ACCESS Physical Exam Vital signs: Vital Signs 08/31/18 23:05 02/18/19 23:12 08/31/18 23:15 Temperature 97.7 F Pulse Rate 115 H 112 H 115 H Respiratory Rate 28 H 14 Blood Pressure 148/94 H Pulse Oximetry 95 95 95 09/01/18 01:15 09/01/18 02:30 09/01/18 02:41 Temperature 96.3 F L Pulse Rate 105 H 106 H Respiratory Rate 18 20 Blood Pressure 142/80 H 132/83 Pulse Oximetry 94 L 92 L 94 L 09/01/18 07:35 09/01/18 08:39 09/01/18 09:10 Temperature 96.0 F L Pulse Rate 107 H Respiratory Rate 16 Blood Pressure 137/84 Pulse Oximetry 96 96 96 09/01/18 09:32 Temperature Pulse Rate 105 H Respiratory Rate 20 Blood Pressure Pulse Oximetry 95 Intake & Output 08/31/18 09/01/18 09/01/18 18:59 06:59 18:59 Intake Total 120 / 120 Output Total 300 / 300 Balance -180 / -180 Weight 57.5 kg Intake: Oral 120 / 120 Output: Urine 300 / 300 Other: # Voids 1 Date of Last Bowel Movement 09/01/18 Weight On Admission 58.7 kg Narrative: GENERAL: NAD SKIN: Warm and dry. HEAD: Atraumatic. Normocephalic. EYES: Pupils equal and round. No scleral icterus. No injection or drainage. ENT: No nasal bleeding or discharge. Mucous membranes pink and moist. NECK: Trachea midline. No JVD. CARDIOVASCULAR: Regular rate and rhythm. RESPIRATORY: No accessory muscle use. Clear to auscultation. Breath sounds equal bilaterally. GASTROINTESTINAL: Abdomen soft, non-tender, nondistended. Hepatic and splenic margins not palpable. MUSCULOSKELETAL: Extremities without clubbing, cyanosis, or edema. No obvious deformities. NEUROLOGICAL: Awake and alert. No obvious cranial nerve deficits. Motor grossly within normal limits. Five out of 5 muscle strength in the arms and legs. Normal speech. PSYCHIATRIC: Appropriate mood and affect; insight and judgment normal. Results Labs CBC & Chem 7: 08/31/18 23:10 08/31/18 23:10 Imaging Impressions Chest X-Ray 08/31/18 23:07 CONCLUSION: 1. Hyperinflation with prominent interstitial markings probably representing some degree of COPD with fibrosis. 2. Left basilar atelectatic changes just above the hemidiaphragm. 3. Heart size is borderline prominent but well compensated Caprini VTE Risk Assessment Caprini VTE Risk Assessment: Moderate/High Risk (score >= 2) Caprini Risk Assessment Model: Point Value = 1 Point Value = 2 Point Value = 3 Point Value = 5 Age 41-60 Minor surgery BMI > 25 kg/m2 Swollen legs Varicose veins or History of unexplained or recurrent spontaneous Oral contraceptives or hormone replacement Sepsis (< 1 month) Serious lung disease, including pneumonia (< 1 month) Abnormal pulmonary function Acute myocardial infarction Congestive heart failure (< 1 month) History of inflammatory bowel disease Medical patient at bed rest Age 61-74 Arthroscopic surgery Major open surgery (> 45 min) Laparoscopic surgery (> 45 min) Malignancy Confined to bed (> 72 hours) Immobilizing plaster cast Central venous access Age >= 75 History of VTE Family history of VTE Factor V Leiden Prothrombin [id number] Lupus anticoagulant Anticardiolipin antibodies Elevated serum homocysteine Heparin-induced thrombocytopenia Other congenital or acquired thrombophilia Stroke (< 1 month) Elective arthroplasty Hip, pelvis, or leg fracture Acute spinal cord injury (< 1 month) Prophylaxis Regimen: Total Risk Factor Score Risk Level Prophylaxis Regimen 0-1 Low Early ambulation 2 Moderate Order ONE of the following: *Sequential Compression Device (SCD) *Heparin 5000 units SQ BID 3-4 Higher Order ONE of the following medications: *Heparin 5000 units SQ TID *Enoxaparin/Lovenox 40 mg SQ daily (WT < 150 kg, CrCl > 30 mL/min) *Enoxaparin/Lovenox 30 mg SQ daily (WT < 150 kg, CrCl > 10-29 mL/min) *Enoxaparin/Lovenox 30 mg SQ BID (WT < 150 kg, CrCl > 30 mL/min) AND/OR *Sequential Compression Device (SCD) 5 or more Highest Order ONE of the following medications: *Heparin 5000 units SQ TID (Preferred with Epidurals) *Enoxaparin/Lovenox 40 mg SQ daily (WT < 150 kg, CrCl > 30 mL/min) *Enoxaparin/Lovenox 30 mg SQ daily (WT < 150 kg, CrCl > 10-29 mL/min) *Enoxaparin/Lovenox 30 mg SQ BID (WT < 150 kg, CrCl > 30 mL/min) AND *Sequential Compression Device (SCD) Assessment and Plan Plan 73-year-old man with COPD exacerbation Chest x-ray noted and reviewed by me with finding of Hyperinflation with prominent interstitial markings probably representing some degree of COPD with fibrosis. Patient currently on IV Solu-Medrol, which I will switch to p.o. as he has significant improvement of symptoms Will continue with long-acting as well as short acting beta agonist Maintain oxygen saturation above 92% Hypertension, chronic essential Resume home losartan Hyperlipidemia Resume statin Patient's condition as tremendously improved since admission, therefore he will be discharged home with follow-up with PCP Discharge patient to home Condition on discharge: Improved Regular Diet as tolerated Ad Chandrika activity Rx written: See EMR Follow-up with primary care physician H&P: Quality VTE Deep Vein Thrombosis/Pulmonary Embolism Present on Admission: No
[2018-09-01 12:29] VITALS: BP 120/67; PULSE 100; RESP 16; TEMP 98.3; O2SAT 94
--- NOTE | 2018-09-01 17:01 | ECG ---
Date Performed: 09/01/2018 Time Performed: 00:02:42 PTAGE: 73 years EKG: SINUS TACHYCARDIA Left atrial abnormality INTRAVENTRICULAR CONDUCTION DELAY LEFT VENTRICULA R HYPERTROPHY AND ST-T CHANGE Since the previous tracing, no significant change noted ABNORMAL ECG PREVIOUS TRACING : 06/10/2018 20.55 DOCTOR: Roberto Callahan Interpretating Date/Time 09/01/2018 17:00:13
== END 2018-09-01 13:25 | disposition home or self-care (01) ==
LOC: PHEDA 23:03 → PHED 23:03 → PH3 09-01 02:11
PROVIDERS: ADMIT Hospitalist; ATTEND Hospitalist
CPT/HCPCS: 71010; 71045; 80053; 83520; 83880; 84484; 85025; 87275; 87276; 87804; 90774; 90775; 93005; 94640; 94664; 94665; 96372; 96374; 96375; 96376; 99285; C8952; G0378; J1644; J1940; J2920; J2930